=== PATIENT | male | born 1930 | race Two or more races ===

== ENCOUNTER 2018-05-24 11:02 | Inpatient (IN) | payer MEDICARE, BC ==
[~2018-05-24] VITALS: Ht 167.6 cm; Wt 66.2 kg
[2018-05-24] VITALS (10 sets, daily range): BP systolic 132–162; BP diastolic 44–89
[2018-05-24] MEDS ORDERED: phenytoin SODIUM IV 1,000 MG in IV NS 0.9% 100 ML IV ONE (11:30)
[2018-05-24] MEDS ORDERED: IV NS 0.9% 1,000 ML BAG IV ONE (11:30)
[2018-05-24] MEDS ORDERED: METO25TA20 PO (11:55)
[2018-05-24] MEDS ORDERED: DIVA500T2 PO (11:55)
[2018-05-24] MEDS ORDERED: CRAN3875 PO (11:55)
[2018-05-24] MEDS ORDERED: LISI-603 PO (11:55)
[2018-05-24] MEDS ORDERED: LACT1CAP7 PO (11:55)
[2018-05-24] MEDS ORDERED: SERT50TA PO (11:55)
[2018-05-24] MEDS ORDERED: ZINC220C6 PO (11:55)
[2018-05-24] MEDS ORDERED: AMLO5TAB2 PO (11:55)
[2018-05-24] MEDS ORDERED: ASCO500T9 PO (11:55)
[2018-05-24] MEDS ORDERED: FINA5TAB11 PO (11:55)
[2018-05-24] MEDS ORDERED: CRAN425C6 PO (11:55)
[2018-05-24] MEDS ORDERED: AMIN887L PO (11:55)
[2018-05-24] MEDS ORDERED: OLAN10VI IM (11:55)
[2018-05-24] MEDS ORDERED: DIVA250T4 PO (11:55)
[2018-05-24] MEDS ORDERED: ACET325T53 PO (11:55)
[2018-05-24] MEDS ORDERED: MULT-213 PO (11:55)
[2018-05-24] MEDS ORDERED: TAMS-12 PO (11:55)
[2018-05-24 12:00] LABS: BASOPHILS % (AUTO) 0.2 % (0.0-2.0); EOSINOPHILS % (AUTO) 0.9 % (0.0-6.0); HEMATOCRIT 36 % (39-51); HEMOGLOBIN 11.7 g/dL (13.5-17.5); LYMPHOCYTES # (AUTO) 2.3 /CMM (0.8-4.8); LYMPHOCYTES % (AUTO) 25.5 % (20.0-44.0); MEAN CORPUSCULAR HEMOGLOBIN 29 PG (26.0-33.0); MEAN CORPUSCULAR HGB CONC 33 g/dl (31.0-36.0); MEAN CORPUSCULAR VOLUME 89 fL (80-96); MONOCYTES # (AUTO) 0.8 /CMM (0.1-1.30); MONOCYTES % (AUTO) 8.6 % (2.0-12.0); NEUTROPHILS # (AUTO) 5.9 /CMM (1.8-8.9); NEUTROPHILS % (AUTO) 64.8 % (43.0-81.0); PLATELET COUNT (AUTO) 284 /CMM (150-450); RDW COEFFICIENT OF VARIATION 12.1 (11.5-15.0); RED BLOOD CELL COUNT(AUTO) 4.01 MIL/uL (4.5-6.0); WHITE BLOOD COUNT (AUTO) 9.1 K/uL (4.3-11.0)
[2018-05-24 12:13] LABS: INR 0.95 (0.85-1.15)
[2018-05-24 12:18] LABS: CALCIUM, SERUM 9.6 mg/dL (8.5-10.1); CARBON DIOXIDE 23 mmol/L (21-32); CHLORIDE 104 mmol/L (98-107); CREATININE 1.4 mg/dL (0.6-1.3); GLUCOSE 162 mg/dL (74-106); POTASSIUM 3.8 mmol/L (3.5-5.1); SODIUM SERUM 140 mmol/L (136-145); UREA NITROGEN, BLOOD 27 mg/dL (7-18)
[2018-05-24 12:22] LABS: APPEARANCE,URINE Slightly Cloudy (CLEAR); BILIRUBIN,URINE Negative (NEGATIVE); BLOOD, URINE Moderate Ery/uL (NEGATIVE); COLOR,URINE Yellow (YELLOW); KETONES,URINE Negative (NEGATIVE); LEUKOCYTE ESTERASE ,URINE Small (NEGATIVE); NITRITE, URINE Negative (NEGATIVE); PH,URINE 5.5 (5.0-8.0); PROTEIN,URINE 100 mg/dl (NEGATIVE); UGLUCOSE Negative (NEGATIVE); UROBILINOGEN,URINE 0.2 EU/dL (0.2)
[2018-05-24 12:24] LABS: ALANINE AMINOTRANSFERASE 16 U/L (12-78); ALBUMIN 3.1 g/dL (3.4-5.0); ALKALINE PHOSPHATASE 66 U/L (46-116); ASPARTATE AMINOTRANSFERASE 14 U/L (15-37); BILIRUBIN,DIRECT 0.1 mg/dL (0.0-0.2); BILIRUBIN,TOTAL 0.2 mg/dL (0.2-1.0); TOTAL PROTEIN, SERUM 7.6 g/dL (6.4-8.2)
[2018-05-24 12:42] LABS: BACTERIA,URINE Many /HPF (None Seen); SQUAMOUS EPITHELIAL CELL,UR Rare /HPF (None Seen)
[2018-05-24 12:44] LABS: CALCIUM OXALATE CRYSTALS,UR Rare /HPF (None Seen); WBC,URINE 21-50 /HPF (0-3); YEAST,URINE Moderate /HPF (None Seen)
[2018-05-24] MEDS ORDERED: LORAZEPAM INJ 2 MG/ML VIAL IV PRN (14:00)
[2018-05-24] MEDS ORDERED: NOREPINEPHRINE 8 MG in IV D5W 500 ML IV PRN (14:00)
[2018-05-24] MEDS ORDERED: ONDANSETRON HCL/PF 4 MG/2 ML VIAL IVP PRN (14:00)
[2018-05-24] MEDS ORDERED: ACETAMINOPHEN 650 MG/SUPP.RECT RC PRN (14:00)
[2018-05-24] MEDS ORDERED: MORPHINE SULFATE INJ 2 MG/ML DISP.SYRIN IV PRN (14:30)
[2018-05-24] MEDS ORDERED: LEVETIRACETAM (500MG) 500 MG in IV NS 0.9% 100 ML IV SCH (15:00)
[2018-05-24] MEDS ORDERED: OLANZAPINE 10 MG VIAL IM PRN (15:00)
[2018-05-24] MEDS: IV D5/ 0.9% NACL 1,000 ML IV PRN (15:01)
[2018-05-24] MEDS: CEFTRIAXONE 1 G in IV D5W 50 ML IV SCH (15:45)
[2018-05-24] MEDS: METOPROLOL TARTRATE 25 MG TABLET PO SCH (16:50)
[2018-05-24] MEDS: LACTOBACILLUS RHAMNOSUS GG 1 EACH CAP.SPRINK PO SCH (16:50)
[2018-05-24] MEDS ORDERED: Medication Not On Formulary EA (Cran/Vitc/Mannose/Inulin/Brom (Uti-Stat Liquid) 30 MG) PO SCH (17:00)
[2018-05-24] MEDS: TAMSULOSIN 0.4 MG CAP.SR.24H PO SCH (21:03)
[2018-05-24] MEDS: FINASTERIDE (5 MG) 5 MG TABLET PO SCH (21:04)
[2018-05-24] MEDS: DIVALPROEX SODIUM 500 MG TABLET.DR PO SCH (21:05)
[2018-05-25] VITALS (17 sets, daily range): BP systolic 88–143; BP diastolic 36–76
[2018-05-25] MEDS: IV D5/ 0.9% NACL 1,000 ML IV PRN ×2 (04:44→18:18)
[2018-05-25] MEDS ORDERED: SERTRALINE HCL 50 MG TABLET PO SCH (09:00)
[2018-05-25] MEDS: METOPROLOL TARTRATE 25 MG TABLET PO SCH ×2 (09:00→17:00)
[2018-05-25] MEDS ORDERED: DIVALPROEX SODIUM 250 MG TABLET.DR PO SCH (09:00)
[2018-05-25] MEDS ORDERED: Medication Not On Formulary EA (Cranberry Extract (Cranberry) 425 MG) PO SCH (09:00)
[2018-05-25] MEDS: AMLODIPINE BESYLATE 5 MG TABLET PO SCH ×2 (09:00→09:30)
[2018-05-25] MEDS: LACTOBACILLUS RHAMNOSUS GG 1 EACH CAP.SPRINK PO SCH ×2 (09:16→18:35)
[2018-05-25] MEDS: PANTOPRAZOLE 40 MG VIAL IV SCH (09:19)
[2018-05-25] MEDS: ZINC SULFATE 220 MG CAPSULE PO SCH (09:20)
[2018-05-25] MEDS: ASCORBIC ACID 500 MG TABLET PO SCH (09:21)
[2018-05-25] MEDS: MULTIVIT, IRON, MIN NO. 8, FA 1 TAB PO SCH (09:26)
[2018-05-25] MEDS: LISINOPRIL (20MG) 20 MG TABLET PO SCH (09:29)
[2018-05-25] MEDS: PROSOURCE / PROSTAT (PYXIS) 30 ML UDC PO SCH (09:35)
[2018-05-25] MEDS: SERTRALINE HCL 25 MG TABLET PO SCH (09:39)
[2018-05-25] MEDS ORDERED: VALPROATE 750 MG in IV NS 0.9% 100 ML IV STA (14:31)
[2018-05-25] MEDS: CEFTRIAXONE 1 G in IV D5W 50 ML IV SCH (16:15)
[2018-05-25] MEDS: DIVALPROEX SODIUM 500 MG TABLET.DR PO SCH (21:26)
[2018-05-25] MEDS: FINASTERIDE (5 MG) 5 MG TABLET PO SCH (21:26)
[2018-05-25] MEDS: TAMSULOSIN 0.4 MG CAP.SR.24H PO SCH (21:26)
[2018-05-26] VITALS (8 sets, daily range): BP systolic 92–150; BP diastolic 40–58
[2018-05-26 06:49] LABS: BASOPHILS % (AUTO) 0.5 % (0.0-2.0); EOSINOPHILS % (AUTO) 3.7 % (0.0-6.0); HEMATOCRIT 34 % (39-51); HEMOGLOBIN 11.1 g/dL (13.5-17.5); LYMPHOCYTES # (AUTO) 1.8 /CMM (0.8-4.8); LYMPHOCYTES % (AUTO) 25.3 % (20.0-44.0); MEAN CORPUSCULAR HEMOGLOBIN 30 PG (26.0-33.0); MEAN CORPUSCULAR HGB CONC 33 g/dl (31.0-36.0); MEAN CORPUSCULAR VOLUME 91 fL (80-96); MONOCYTES # (AUTO) 0.7 /CMM (0.1-1.30); MONOCYTES % (AUTO) 10.6 % (2.0-12.0); NEUTROPHILS # (AUTO) 4.2 /CMM (1.8-8.9); NEUTROPHILS % (AUTO) 59.9 % (43.0-81.0); PLATELET COUNT (AUTO) 204 /CMM (150-450); RDW COEFFICIENT OF VARIATION 13.5 (11.5-15.0); RED BLOOD CELL COUNT(AUTO) 3.69 MIL/uL (4.5-6.0)
[2018-05-26 07:10] LABS: ALANINE AMINOTRANSFERASE 10 U/L (12-78); ALBUMIN 2.8 g/dL (3.4-5.0); ALKALINE PHOSPHATASE 58 U/L (46-116); ASPARTATE AMINOTRANSFERASE 15 U/L (15-37); BILIRUBIN,TOTAL 0.2 mg/dL (0.2-1.0); CALCIUM, SERUM 8.9 mg/dL (8.5-10.1); CARBON DIOXIDE 28 mmol/L (21-32); CHLORIDE 109 mmol/L (98-107); CREATININE 1.1 mg/dL (0.6-1.3); GLUCOSE 104 mg/dL (74-106); MAGNESIUM 2.1 mg/dL (1.8-2.4); PHOSPHORUS 3.2 mg/dL (2.5-4.9); SODIUM SERUM 145 mmol/L (136-145); UREA NITROGEN, BLOOD 17 mg/dL (7-18)
[2018-05-26 07:14] LABS: CREATINE KINASE, TOTAL 105 U/L (39-308)
[2018-05-26] MEDS: METOPROLOL TARTRATE 25 MG TABLET PO SCH ×2 (09:00→16:29)
[2018-05-26] MEDS ORDERED: DIVALPROEX SODIUM 250 MG TABLET.DR PO SCH (09:00)
[2018-05-26] MEDS: LACTOBACILLUS RHAMNOSUS GG 1 EACH CAP.SPRINK PO SCH ×2 (09:23→16:41)
[2018-05-26] MEDS: PANTOPRAZOLE 40 MG VIAL IV SCH (09:23)
[2018-05-26] MEDS: ZINC SULFATE 220 MG CAPSULE PO SCH (09:25)
[2018-05-26] MEDS: ASCORBIC ACID 500 MG TABLET PO SCH (09:25)
[2018-05-26] MEDS: MULTIVIT, IRON, MIN NO. 8, FA 1 TAB PO SCH (09:25)
[2018-05-26] MEDS: LISINOPRIL (20MG) 20 MG TABLET PO SCH (09:26)
[2018-05-26] MEDS: AMLODIPINE BESYLATE 5 MG TABLET PO SCH (09:26)
[2018-05-26] MEDS: SERTRALINE HCL 25 MG TABLET PO SCH (09:27)
[2018-05-26] MEDS: PROSOURCE / PROSTAT (PYXIS) 30 ML UDC PO SCH (09:27)
[2018-05-26] MEDS ORDERED: Z GUARD REMEDY 2 OZ OINT TP PRN (09:30)
[2018-05-26] MEDS: IV D5/ 0.9% NACL 1,000 ML IV PRN (12:57)
[2018-05-26] MEDS: Z GUARD REMEDY 2 OZ OINT TP SCH (13:22)
[2018-05-26] MEDS: FLUCONAZOLE IN NS 100 MG in PREMIX 1 EA IV SCH ×2 (14:22)
[2018-05-26] MEDS: CEFTRIAXONE 1 G in IV D5W 50 ML IV SCH (15:43)
[2018-05-26] MEDS: DIVALPROEX SODIUM 500 MG TABLET.DR PO SCH (21:17)
[2018-05-26] MEDS: FINASTERIDE (5 MG) 5 MG TABLET PO SCH (21:17)
[2018-05-26] MEDS: TAMSULOSIN 0.4 MG CAP.SR.24H PO SCH (21:18)
[2018-05-27] VITALS: BP 144/68
[2018-05-27 04:00] VITALS: BP 123/61
[2018-05-27] MEDS: IV D5/ 0.9% NACL 1,000 ML IV PRN ×2 (04:55→19:38)
[2018-05-27 07:02] LABS: BASOPHILS % (AUTO) 0.5 % (0.0-2.0); EOSINOPHILS % (AUTO) 5.2 % (0.0-6.0); HEMATOCRIT 35 % (39-51); HEMOGLOBIN 10.4 g/dL (13.5-17.5); LYMPHOCYTES # (AUTO) 1.7 /CMM (0.8-4.8); LYMPHOCYTES % (AUTO) 27.5 % (20.0-44.0); MEAN CORPUSCULAR HEMOGLOBIN 27 PG (26.0-33.0); MEAN CORPUSCULAR HGB CONC 30 g/dl (31.0-36.0); MEAN CORPUSCULAR VOLUME 91 fL (80-96); MONOCYTES # (AUTO) 0.7 /CMM (0.1-1.30); MONOCYTES % (AUTO) 10.5 % (2.0-12.0); NEUTROPHILS # (AUTO) 3.6 /CMM (1.8-8.9); NEUTROPHILS % (AUTO) 56.3 % (43.0-81.0); PLATELET COUNT (AUTO) 215 /CMM (150-450); RDW COEFFICIENT OF VARIATION 13.4 (11.5-15.0); RED BLOOD CELL COUNT(AUTO) 3.83 MIL/uL (4.5-6.0); WHITE BLOOD COUNT (AUTO) 6.4 K/uL (4.3-11.0)
[2018-05-27 07:13] LABS: CALCIUM, SERUM 8.9 mg/dL (8.5-10.1); CARBON DIOXIDE 29 mmol/L (21-32); CHLORIDE 111 mmol/L (98-107); GLUCOSE 96 mg/dL (74-106); POTASSIUM 3.5 mmol/L (3.5-5.1); SODIUM SERUM 146 mmol/L (136-145); UREA NITROGEN, BLOOD 15 mg/dL (7-18)
[2018-05-27 08:00] VITALS: BP 149/59
[2018-05-27] MEDS: PROSOURCE / PROSTAT (PYXIS) 30 ML UDC PO SCH (09:30)
[2018-05-27] MEDS: LACTOBACILLUS RHAMNOSUS GG 1 EACH CAP.SPRINK PO SCH ×2 (09:31→16:46)
[2018-05-27] MEDS: MULTIVIT, IRON, MIN NO. 8, FA 1 TAB PO SCH (09:31)
[2018-05-27] MEDS: ZINC SULFATE 220 MG CAPSULE PO SCH (09:31)
[2018-05-27] MEDS: SERTRALINE HCL 25 MG TABLET PO SCH (09:31)
[2018-05-27] MEDS: PANTOPRAZOLE 40 MG VIAL IV SCH (09:31)
[2018-05-27] MEDS: AMLODIPINE BESYLATE 5 MG TABLET PO SCH (09:32)
[2018-05-27] MEDS: METOPROLOL TARTRATE 25 MG TABLET PO SCH ×2 (09:33→16:46)
[2018-05-27] MEDS: LISINOPRIL (20MG) 20 MG TABLET PO SCH (09:33)
[2018-05-27] MEDS: ASCORBIC ACID 500 MG TABLET PO SCH (09:33)
[2018-05-27] MEDS: DIVALPROEX SODIUM 125 MG CAP.SPRINK PO SCH (09:35)
[2018-05-27] MEDS: Z GUARD REMEDY 2 OZ OINT TP SCH (09:37)
[2018-05-27] MEDS ORDERED: CLONIDINE HCL 0.1 MG TABLET PO PRN (10:30)
[2018-05-27 12:00] VITALS: BP 146/59
[2018-05-27 12:09] LABS: PTH, INTACT 30 pg/mL (15-65)
[2018-05-27] MEDS: FLUCONAZOLE IN NS 100 MG in PREMIX 1 EA IV SCH ×2 (12:38)
[2018-05-27] MEDS: CEFTRIAXONE 1 G in IV D5W 50 ML IV SCH (15:06)
[2018-05-27 16:00] VITALS: BP 152/65
[2018-05-27] MEDS ORDERED: LACTOBACILLUS RHAMNOSUS GG 1 EACH CAP.SPRINK PO SCH (17:00)
[2018-05-27 20:00] VITALS: BP 131/66
[2018-05-27] MEDS ORDERED: DIVALPROEX SODIUM 125 MG CAP.SPRINK PO SCH (22:00)
[2018-05-27] MEDS: TAMSULOSIN 0.4 MG CAP.SR.24H PO SCH (22:21)
[2018-05-27] MEDS: FINASTERIDE (5 MG) 5 MG TABLET PO SCH (22:21)
[2018-05-28] VITALS: BP 179/75
[2018-05-28 04:00] VITALS: BP 155/56
[2018-05-28 08:00] VITALS: BP 140/60
[2018-05-28] MEDS: METOPROLOL TARTRATE 25 MG TABLET PO SCH (09:00)
[2018-05-28] MEDS: ASCORBIC ACID 500 MG TABLET PO SCH (09:02)
[2018-05-28] MEDS: PANTOPRAZOLE 40 MG VIAL IV SCH (09:02)
[2018-05-28] MEDS: PROSOURCE / PROSTAT (PYXIS) 30 ML UDC PO SCH (09:03)
[2018-05-28] MEDS: LACTOBACILLUS RHAMNOSUS GG 1 EACH CAP.SPRINK PO SCH (09:03)
[2018-05-28] MEDS: MULTIVIT, IRON, MIN NO. 8, FA 1 TAB PO SCH (09:03)
[2018-05-28] MEDS: ZINC SULFATE 220 MG CAPSULE PO SCH (09:03)
[2018-05-28] MEDS: Z GUARD REMEDY 2 OZ OINT TP SCH (09:04)
[2018-05-28] MEDS: DIVALPROEX SODIUM 125 MG CAP.SPRINK PO SCH (09:53)
[2018-05-28] MEDS: SERTRALINE HCL 25 MG TABLET PO SCH (09:53)
[2018-05-28] MEDS: LISINOPRIL (20MG) 20 MG TABLET PO SCH (09:54)
[2018-05-28] MEDS: AMLODIPINE BESYLATE 5 MG TABLET PO SCH (09:54)
[2018-05-28 10:35] LABS: BASOPHILS % (AUTO) 0.3 % (0.0-2.0); EOSINOPHILS % (AUTO) 1.3 % (0.0-6.0); HEMATOCRIT 35 % (39-51); HEMOGLOBIN 11.2 g/dL (13.5-17.5); LYMPHOCYTES # (AUTO) 1.5 /CMM (0.8-4.8); LYMPHOCYTES % (AUTO) 21.9 % (20.0-44.0); MEAN CORPUSCULAR HEMOGLOBIN 29 PG (26.0-33.0); MEAN CORPUSCULAR HGB CONC 32 g/dl (31.0-36.0); MEAN CORPUSCULAR VOLUME 91 fL (80-96); MONOCYTES # (AUTO) 0.4 /CMM (0.1-1.30); MONOCYTES % (AUTO) 6.3 % (2.0-12.0); NEUTROPHILS # (AUTO) 4.9 /CMM (1.8-8.9); NEUTROPHILS % (AUTO) 70.2 % (43.0-81.0); PLATELET COUNT (AUTO) 181 /CMM (150-450); RDW COEFFICIENT OF VARIATION 13.5 (11.5-15.0)
[2018-05-28 10:44] LABS: CALCIUM, SERUM 8.9 mg/dL (8.5-10.1); CARBON DIOXIDE 28 mmol/L (21-32); CHLORIDE 108 mmol/L (98-107); CREATININE 0.9 mg/dL (0.6-1.3); GLUCOSE 111 mg/dL (74-106); POTASSIUM 3.5 mmol/L (3.5-5.1); SODIUM SERUM 140 mmol/L (136-145); UREA NITROGEN, BLOOD 14 mg/dL (7-18)
[2018-05-28] MEDS: IV D5/ 0.9% NACL 1,000 ML IV PRN (11:37)
[2018-05-28 12:00] VITALS: BP 146/54
[2018-05-28] MEDS ORDERED: CIPR500T5 PO (13:41)
[2018-05-28] MEDS ORDERED: DIVA500T2 PO (13:41)
[2018-05-28] MEDS ORDERED: FLUC150T PO (13:41)
[2018-05-28] MEDS: CEFTRIAXONE 1 G in IV D5W 50 ML IV SCH (14:39)
[2018-05-29 10:14] LABS: *SPE ALBUMIN 3.2 g/dL (2.9-4.4); *SPE ALPHA-1-GLOBULIN 0.3 g/dL (0.0-0.4); *SPE ALPHA-2-GLOBULIN 0.7 g/dL (0.4-1.0); *SPE BETA GLOBULIN 0.9 g/dL (0.7-1.3); *SPE GLOBULIN, TOTAL 3.2 g/dL (2.2-3.9); *SPE M-SPIKE Not Observed g/dL (Not Observed); *SPEGAMMA GLOBULIN 1.3 g/dL (0.4-1.8)
[2018-05-29] MEDS ORDERED: FLUCONAZOLE (100 MG) 100 MG TABLET PO SCH (13:00)
== END 2018-05-28 16:00 | disposition home health service (06) | DRG 64 ==
LOC: ER 11:05 → ICU 13:43 → TELE1 05-25 14:26
PROVIDERS: ADMIT Nurse Practitioner Acute Care; ATTEND Nurse Practitioner Acute Care
DX: I61.9 Nontraumatic intracerebral hemorrhage, unspecified (principal); N17.0 Acute kidney failure with tubular necrosis; N39.0 Urinary tract infection, site not specified; E87.2 Acidosis; E46 Unspecified protein-calorie malnutrition; N18.9 Chronic kidney disease, unspecified; I12.9 Hypertensive chronic kidney disease with stage 1 through stage 4 chronic kidney disease, or unspecified chronic kidney disease; K21.9 Gastro-esophageal reflux disease without esophagitis; D63.8 Anemia in other chronic diseases classified elsewhere; N40.0 Benign prostatic hyperplasia without lower urinary tract symptoms; F32.9 Major depressive disorder, single episode, unspecified; F29 Unspecified psychosis not due to a substance or known physiological condition; F03.90 Unspecified dementia, unspecified severity, without behavioral disturbance, psychotic disturbance, mood disturbance, and anxiety; E88.09 Other disorders of plasma-protein metabolism, not elsewhere classified; R73.9 Hyperglycemia, unspecified; I25.10 Atherosclerotic heart disease of native coronary artery without angina pectoris; Z66 Do not resuscitate; G40.909 Epilepsy, unspecified, not intractable, without status epilepticus; E86.1 Hypovolemia
CPT/HCPCS: 36415; 70450-TC; 71045-TC; 76770-TC; 80048-TC; 80053-TC; 80076-TC; 80164-TC; 81000-TC; 82550-TC; 82962-TC; 83605-TC; 83735-TC; 83970; 84100-TC; 84155; 84165; 85025-TC; 85730-TC; 87040-TC; 87081-TC; 87086-TC; 92611-TC; 97530-TC; A4216; A4606; C9113; J0696; J1165; J1450; J1953; J2270; J3490; J7030; J7042; J7060; J7070; Z7610